=== PATIENT | female | born 1990 | race Caucasian/White ===

== ENCOUNTER 2016-09-15 20:34 | Observation (INO) | payer OTHER, SELFPAY ==
[~2016-09-15] VITALS: Ht 167.6 cm; Wt 63.0 kg
[2016-09-15] MEDS ORDERED: DEPAKOTE250 MG PO (23:18)
[2016-09-15] MEDS ORDERED: DEPAKOTE500 MG PO (23:19)
[2016-09-15] MEDS ORDERED: TRAZODONE HCL50 MG PO (23:20)
[2016-09-15] MEDS ORDERED: ATARAX25 MG PO (23:21)
== END 2016-09-16 16:38 | disposition short-term general hospital (02) ==
LOC: ER 20:34 → IP 09-16 01:10 → OBS 09-16 01:10 → IP 09-16 16:38
PROVIDERS: ADMIT Family Medicine
DX: R41.82 Altered mental status, unspecified (principal); F19.10 Other psychoactive substance abuse, uncomplicated; R45.851 Suicidal ideations; Z79.899 Other long term (current) drug therapy; Z88.8 Allergy status to other drugs, medicaments and biological substances
CPT/HCPCS: G0378; G0477; G0480; J8499